=== PATIENT | female | born 1980 | race Hispanic/Latino ===

== ENCOUNTER 2016-11-18 02:41 | Emergency (ER) | payer MEDICARE ==
[2016-11-18 03:12] VITALS: BP 135/86
[2016-11-18 04:04] LABS: Valproate < 2.8 ug/mL (50-100)
--- NOTE | 2016-11-20 00:36 | ED Elopement Review ---
ED Pt Elopement review - Results review Lab results: Laboratory Tests 11/18/16 03:25 Phenytoin 2.9 L Valproic Acid < 2.8 L - Call Back decision Pt Call Back Decision: No action required
== END 2016-11-18 03:30 | disposition left against medical advice (07) ==
LOC: ED 02:41
DX: R51 Headache (principal); R56.9 Unspecified convulsions; Z53.21 Procedure and treatment not carried out due to patient leaving prior to being seen by health care provider
CPT/HCPCS: 36415; 80164; 80185